=== PATIENT | male | born 1970 | race Caucasian/White ===

== ENCOUNTER 2023-04-10 13:18 | Day surgery (SDC) | payer BC ==
[2023-04-09 08:49] LABS: BASOPHILS % (AUTO) 0.6 % (0-1); EOSINOPHILS # (AUTO) 0.2 X10'3 (0-0.9); EOSINOPHILS % (AUTO) 2.3 % (0-6); HEMATOCRIT 50.5 % (42.0-52.0); LYMPHOCYTES # (AUTO) 2.3 X10'3 (1.1-4.8); LYMPHOCYTES % (AUTO) 33.6 % (21-51); MEAN CORPUSCULAR HEMOGLOBIN 31.4 PG (27.0-31.0); MEAN CORPUSCULAR HGB CONC 33.7 g/dL (33.0-36.5); MEAN CORPUSCULAR VOLUME 93.3 FL (78-98); MEAN PLATELET VOLUME 8.4 FL (7.4-10.4); MONOCYTES # (AUTO) 0.7 X10'3 (0-0.9); MONOCYTES % (AUTO) 10.1 % (2-12); NEUTROPHILS # (AUTO) 3.7 X10'3 (1.8-7.7); NEUTROPHILS % (AUTO) 53.4 % (42-75); PLATELET COUNT 308 X10'3 (140-440); RED BLOOD COUNT 5.42 X10'6 (4.70-6.10); RED CELL DISTRIBUTION WIDTH 13.7 % (11.5-14.5); WHITE BLOOD COUNT 6.9 X10'3 (4.5-11.0)
[2023-04-09 09:04] LABS: APTT 29 SECONDS (22-32); PROTHROMBIN TIME 10.4 SECONDS (9.0-12.0)
[2023-04-09 09:05] LABS: ALBUMIN 3.8 G/DL (3.4-5.0); ANION GAP 7 (8-16); BLOOD UREA NITROGEN 19 MG/DL (7-18); BUN/CREATININE RATIO 16.5 (10.0-20.0); CALCIUM 9.1 MG/DL (8.5-10.1); CHLORIDE 102 MMOL/L (99-107); CREATININE 1.15 MG/DL (0.60-1.10); GLUCOSE 114 MG/DL (70-104); POTASSIUM 4.8 MMOL/L (3.5-5.1); SODIUM 137 MMOL/L (135-145); eGFR 67 ML/MIN
[~2023-04-10] VITALS: Ht 182.9 cm; Wt 99.0 kg
[2023-04-10] VITALS (9 sets, daily range): BP systolic 135–146; BP diastolic 62–96; PULSE 63–90; RESP 16; TEMP 97.6; O2SAT 95–98
[~2023-04-10 13:18] MED LIST: AMI200T PO; CARV-50 PO; FURO-150 PO; LISI5TAB22 PO
[2023-04-10] MEDS ORDERED: diphenhydrAMINE 25mg capsule PO PRN (14:40)
[2023-04-10] MEDS ORDERED: normal saline 1,000 ML IV SCH (14:40)
[2023-04-10] MEDS ORDERED: ASPI-12 PO (15:43)
[2023-04-10] MEDS ORDERED: SOTA80TA46 PO (15:43)
[2023-04-10] MEDS ORDERED: RED600TA PO (15:43)
[2023-04-10] MEDS ORDERED: NIAC1CAP PO (15:43)
[2023-04-10] MEDS ORDERED: ROSU20TA2 PO (15:43)
[2023-04-10] MEDS ORDERED: verapamil 2.5 mg/ml inj IV ONE (15:57)
[2023-04-10] MEDS ORDERED: LIDOcaine 1% (10mg/ml) 2ml vial ONE (15:57)
[2023-04-10] MEDS ORDERED: midazolam 1 mg/ML 2ml injection ONE (15:57)
[2023-04-10] MEDS ORDERED: heparin 1,000unit/ml 10ml vial 10 ML ONE (15:57)
[2023-04-10] MEDS ORDERED: iohexol 350MG/ML 100ml bottle IV ONE ×2 (15:57→17:17)
[2023-04-10] MEDS ORDERED: iohexol 350 MG/ML 50ML vial IV ONE (15:57)
[2023-04-10] MEDS ORDERED: fentaNYL/PF 50MCG/1 ML 2ML syringe ONE (15:57)
[2023-04-10] MEDS ORDERED: nitroGLYCERIN 500mcg/5mL D5W 5 ML IV ONE (16:10)
[2023-04-10 17:25] LABS: ISTAT Hct ART 50 %PCV (42-52); ISTAT O2 SATURATION ARTERIAL 65 % (95-98); ISTAT SOURCE ART
[2023-04-10] MEDS ORDERED: HYDROcodone/acetaminophen 10/325mg tab PO PRN (18:15)
[2023-04-10] MEDS ORDERED: HYDROcodone/acetaminophen 5mg/325mg tablet PO PRN (18:15)
[2023-04-15 06:16] LABS: ISTAT HGB ART 16.7 g/dl (14.0-17.9); ISTAT Hct ART 49 %PCV (42-52); ISTAT O2 SATURATION ARTERIAL 95 % (95-98); ISTAT SOURCE VEN
== END 2023-04-10 20:20 | disposition home or self-care (01) ==
LOC: SSTAY O 13:18
PROVIDERS: ATTEND Internal Medicine Cardiovascular Disease
DX: I25.10 Atherosclerotic heart disease of native coronary artery without angina pectoris (principal); I34.0 Nonrheumatic mitral (valve) insufficiency; I11.0 Hypertensive heart disease with heart failure; I50.32 Chronic diastolic (congestive) heart failure; I42.0 Dilated cardiomyopathy; I48.0 Paroxysmal atrial fibrillation; Z95.810 Presence of automatic (implantable) cardiac defibrillator; Z98.52 Vasectomy status; Z79.899 Other long term (current) drug therapy; Z79.82 Long term (current) use of aspirin; Z72.89 Other problems related to lifestyle; Z88.8 Allergy status to other drugs, medicaments and biological substances; Z95.2 Presence of prosthetic heart valve
CPT/HCPCS: 36415; 76937; 80048; 82803; 85014; 85025; 85610; 85730; 93005; 93460; 99152; 99153; A6258; J1644; J2250; J3010; J3490; J7030; Q0163; Q9967; A6402; C1725; C1751; C1769; C1894